=== PATIENT | male | born 1955 ===

== ENCOUNTER 2018-01-15 10:54 | Emergency (ER) | payer OTHER ==
[2018-01-15 10:54] VITALS: BMI 33.8
[2018-01-15 12:01] LABS: BASO # 0.2 K/uL (0.0-0.2); BASO % 2.5 % (0.0-2.0); EOS # 0.2 K/uL (0.0-0.7); EOS % 2.2 % (0.0-4.0); HEMOGLOBIN 16.1 g/dL (12.0-18.0); LYMPH # 1.7 K/uL (1.0-4.3); LYMPH % 18.2 % (20.0-40.0); MEAN CORPUSCULAR HEMOGLOBIN 35.1 pg (27.0-31.0); MEAN CORPUSCULAR HGB CONC 35.4 g/dL (33.0-37.0); MONO # 0.7 K/uL (0.0-0.8); MONO % 7.4 % (0.0-10.0); NEUT # 6.5 K/uL (1.8-7.0); NEUT % 69.7 % (50.0-75.0); RBC 4.58 Mil/uL (4.40-5.90); RED CELL DISTRIBUTION WIDTH 12.2 % (11.5-14.5); WHITE BLOOD COUNT 9.3 K/uL (4.8-10.8)
[2018-01-15] MEDS ORDERED: Sodium Chloride 0.9% 1,000 ML IV ONE (12:04)
[2018-01-15] MEDS ORDERED: Sodium Chloride 0.9% 1,000 ML ONE (12:09)
[2018-01-15 12:13] LABS: ALB/GLOB RATIO 1.1 (1.0-2.1); ALBUMIN 4.4 g/dL (3.5-5.0); ALT/SGPT 91 U/L (21-72); AST/SGOT 64 U/L (17-59); BLOOD UREA NITROGEN 12 mg/dL (9-20); CALCIUM 9.6 mg/dl (8.6-10.4); GFR AFRICAN-AMERICAN > 60; GFR NON-AFRICAN AMERICAN > 60; LIPASE 157 U/L (23-300)
--- NOTE | 2018-01-15 12:22 | C.PDOC ---
History Of Present Illness Patient is a 62 y/o male who presents to the ED with a complaint of RUQ pain for approximately 1 week. Patient denies any nausea, vomiting, diarrhea, dysuria , fever, chest pain, or shortness of breath. Patient has no other physical complaints at this time. Time Seen by Provider: 01/15/18 11:16 Chief Complaint (Nursing): Abdominal Pain History Per: Patient History/Exam Limitations: no limitations Onset/Duration Of Symptoms: Days (1 week) Current Symptoms Are (Timing): Still Present Location Of Pain/Discomfort: RUQ Past Medical History Reviewed: Historical Data, Nursing Documentation, Vital Signs Vital Signs: Last Vital Signs Temp 98.1 F 01/15/18 15:47 Pulse 66 01/15/18 15:47 Resp 20 01/15/18 15:47 BP 149/79 01/15/18 15:47 Pulse Ox 99 01/15/18 15:47 - Medical History PMH: Colonic Polyps, HTN Denies: Chronic Kidney Disease Surgical History: Endoscopy - [facility] Procedures ENDOSC POLYPECTOMY OF LG INTEST (05/14/15) TETANUS TOXOID ADMINIST (02/20/14) Family History: States: Unknown Family Hx - Social History Hx Tobacco Use: No Hx Alcohol Use: No Hx Substance Use: No (Former) - Immunization History Hx Tetanus Toxoid Vaccination: Yes (02/20/14) Hx Influenza Vaccination: No Hx Pneumococcal Vaccination: No Review Of Systems Except As Marked, All Systems Reviewed And Found Negative. Gastrointestinal: Positive for: Abdominal Pain (RUQ pain) Physical Exam - Physical Exam Appears: Well, Non-toxic, No Acute Distress, Other (anxious and bizzare affect; comfortable) Skin: Normal Color, Warm, Diaphoretic Head: Atraumatic, Normacephalic Chest: Symmetrical Cardiovascular: Rhythm Regular, No Murmur Respiratory: Normal Breath Sounds, No Rales, No Rhonchi, No Wheezing Gastrointestinal/Abdominal: Soft, Tenderness (mildly tender to RUQ and epigastric area), No Guarding, No Rebound, Other (negative ashley's sign; negative mcburney's sign) ED Course And Treatment - Laboratory Results Result Diagrams: 01/15/18 11:57 01/15/18 11:57 O2 Sat by Pulse Oximetry: 99 Progress Note: blood work and CT abdomen/pelvis ordered. IV fluids administered. Disposition Counseled Patient/Family Regarding: Studies Performed, Diagnosis, Need For Followup - Disposition Referrals: [facility] at [facility] [Outside] Anatoly Abdi MD [Staff Provider] - Disposition: HOME/ ROUTINE Disposition Time: 16:50 Condition: STABLE Additional Instructions: FOLLOW UP WITH PROCESS CONTROL TECHNICIAN WITHIN 1 WEEK RETURN TO EMERGENCY ROOM IF SYMPTOMS WORSEN SEGUIMIENTO CON GASTROENTERLOGO DENTRO DE 1 SEMANA REGRESE AL MOODY DE EMERGENCIA SI LOS SNTOMAS EMPEORAN Instructions: Acute Abdomen (Belly Pain), Adult (DC) Forms: [employer] (Tanzanian) Print Language: MALTESE - POA Present On Arrival: None - Clinical Impression Clinical Impression: RUQ abdominal pain - Scribe Statement The provider has reviewed the documentation as recorded by the Scribe Gloria Lloyd All medical record entries made by the Scribe were at my direction and personally dictated by me. I have reviewed the chart and agree that the record accurately reflects my personal performance of the history, physical exam, medical decision making, and the department course for this patient. I have also personally directed, reviewed, and agree with the discharge instructions and disposition.
[2018-01-15 12:34] LABS: URINE BILIRUBIN NEGATIVE (NEGATIVE); URINE BLOOD 1+ (NEGATIVE); URINE CLARITY Clear (Clear); URINE COLOR Yellow (YELLOW); URINE GLUCOSE (UA) NORMAL (Normal); URINE LEUKOCYTE ESTERASE NEG Leu/uL (Negative); URINE PROTEIN NEGATIVE (NEGATIVE); URINE UROBILINOGEN NORMAL mg/dL (0.2-1.0)
[2018-01-15] MEDS ORDERED: Iodixanol 320 MG/ML 100 ML BOTTLE IV ONE (15:02)
[2018-01-15 15:48] VITALS: RESP 20
--- NOTE | 2018-01-15 16:54 | CT ---
PROCEDURE: CT Abdomen and Pelvis with contrast HISTORY: UPPER ABDOMINAL PAIN COMPARISON: 05/14/2015 TECHNIQUE: Contrast dose: 100 mL Visipaque 320 Radiation dose: Total exam DLP = 1321.78 mGy-cm. This CT exam was performed using one or more of the following dose reduction techniques: Automated exposure control, adjustment of the mA and/or kV according to patient size, and/or use of iterative reconstruction technique. FINDINGS: LOWER THORAX: Unremarkable. LIVER: Unremarkable. No gross lesion or ductal dilatation. GALLBLADDER AND BILE DUCTS: Unremarkable. PANCREAS: Unremarkable. No gross lesion or ductal dilatation. SPLEEN: Unremarkable. ADRENALS: Unremarkable. No mass. KIDNEYS AND URETERS: Unremarkable. No hydronephrosis. No solid mass. VASCULATURE: Unremarkable. No aortic aneurysm. BOWEL: Unremarkable. No obstruction. No gross mural thickening. APPENDIX: Normal appendix. PERITONEUM: Unremarkable. No free fluid. No free air. LYMPH NODES: Unremarkable. No enlarged lymph nodes. BLADDER: Unremarkable. REPRODUCTIVE: Normal prostate BONES: No acute fracture. OTHER FINDINGS: None. IMPRESSION: Unremarkable contrast enhanced CT of the abdomen and pelvis.
[2018-01-15 17:19] VITALS: BP 135/82; PULSE 67; TEMP 98.7; O2SAT 97
== END 2018-01-15 17:20 | disposition home or self-care (01) ==
LOC: C.ER 10:54
DX: R10.11 Right upper quadrant pain (principal); I10 Essential (primary) hypertension
CPT/HCPCS: 74177; 80053; 81001; 83690; 85025; 96360; 99285; J7040; Q9967

== ENCOUNTER 2018-06-05 17:54 | Emergency (ER) | payer OTHER ==
[2018-06-05 17:55] VITALS: BMI 33.8
[2018-06-05 18:16] VITALS: RESP 18; O2SAT 97
[2018-06-05] MEDS ORDERED: Ciprofloxacin 400mg/200ml D5W 400 MG/200 ML BAG IVPB STA (19:41)
[2018-06-05] MEDS ORDERED: cefTRIAXone IV 1 gm in Dextros 50 ML IVPB ONE (19:41)
[2018-06-05 19:58] LABS: BASO # 0.1 K/uL (0.0-0.2); BASO % 0.9 % (0.0-2.0); EOS # 0.2 K/uL (0.0-0.7); EOS % 2.8 % (0.0-4.0); HEMOGLOBIN 14.8 g/dL (12.0-18.0); LYMPH # 2.4 K/uL (1.0-4.3); MEAN CELL VOLUME 98.1 fL (80.0-94.0); MEAN CORPUSCULAR HEMOGLOBIN 34.9 pg (27.0-31.0); MEAN CORPUSCULAR HGB CONC 35.6 g/dL (33.0-37.0); MEAN PLATELET VOLUME 7.7 fL (7.2-11.7); MONO # 0.6 K/uL (0.0-0.8); MONO % 9.6 % (0.0-10.0); NEUT # 2.9 K/uL (1.8-7.0); NEUT % 47.7 % (50.0-75.0); RBC 4.24 Mil/uL (4.40-5.90); RED CELL DISTRIBUTION WIDTH 12.4 % (11.5-14.5); WHITE BLOOD COUNT 6.1 K/uL (4.8-10.8)
[2018-06-05] MEDS ORDERED: Cefotaxime 1 GM in Sodium Chloride 0.9% 100 ML IV ONE (20:00)
[2018-06-05 20:05] LABS: SQUAMOUS EPITHIAL < 1 /hpf (0-5); URINE AMORPHOUS SEDIMENT RARE /ul (<OCC); URINE BACTERIA RARE (<OCC); URINE BILIRUBIN NEGATIVE (NEGATIVE); URINE BLOOD NEGATIVE (NEGATIVE); URINE CLARITY Hazy (Clear); URINE COLOR Yellow (YELLOW); URINE GLUCOSE (UA) NORMAL (Normal); URINE LEUKOCYTE ESTERASE NEG Leu/uL (Negative); URINE PROTEIN NEGATIVE (NEGATIVE)
--- NOTE | 2018-06-05 20:07 | C.PDOC ---
History Of Present Illness 62 year old male patient with history of gastritis and BPH presents to the ER with c/o prostate discomfort/pain x5 days ago. The discomfort feels like a sharp, stabbing pain. Patient reports he had prostatitis 2 years ago without it recurring until x5 days ago. Patient takes flomax for his prostatitis. Associated symptoms includes sticking pain in his prostate and discomfort when he moves or changes position. Patient denies fever, chills, nausea, vomiting, abdominal pain, diarrhea and dysuria. Time Seen by Provider: 06/05/18 19:10 Chief Complaint (Nursing): Male Genitourinary History Per: Patient History/Exam Limitations: no limitations Onset/Duration Of Symptoms: Days (x6) Current Symptoms Are (Timing): Still Present Quality Of Discomfort: Sharp, Stabbing Past Medical History Reviewed: Historical Data, Nursing Documentation, Vital Signs Vital Signs: Last Vital Signs Temp 98.7 F 06/05/18 18:12 Pulse 74 06/05/18 18:12 Resp 18 06/05/18 18:12 BP 147/77 06/05/18 18:12 Pulse Ox 97 06/05/18 18:12 - Medical History PMH: Colonic Polyps, HTN Surgical History: Endoscopy - [facility] Procedures ENDOSC POLYPECTOMY OF LG INTEST (05/14/15) TETANUS TOXOID ADMINIST (02/20/14) Family History: States: Unknown Family Hx - Social History Hx Tobacco Use: No Hx Alcohol Use: No Hx Substance Use: No (Former) - Immunization History Hx Tetanus Toxoid Vaccination: Yes (02/20/14) Hx Influenza Vaccination: No Hx Pneumococcal Vaccination: No Review Of Systems Except As Marked, All Systems Reviewed And Found Negative. Constitutional: Negative for: Fever, Chills Gastrointestinal: Negative for: Nausea, Vomiting, Abdominal Pain, Diarrhea Genitourinary: Positive for: Other (prostate discomfort and pain ). Negative for: Dysuria Physical Exam - Physical Exam Appears: Non-toxic, No Acute Distress Skin: Normal Color, Warm, Dry Head: Normacephalic Eye(s): bilateral: Normal Inspection, EOMI Gastrointestinal/Abdominal: Soft, Other (discomfort in suprapubic area) Male Genital: No Testicular Tenderness Neurological/Psych: Oriented x3, Normal Speech Gait: Steady ED Course And Treatment - Laboratory Results Result Diagrams: 10/06/18 19:50 O2 Sat by Pulse Oximetry: 97 (RA) Pulse Ox Interpretation: Normal Medical Decision Making Medical Decision Making: Impression: prostate discomfort/pain Plans: -- chem lab -- blood work -- cipro -- claforan -- IV fluids -- Rocephin -- UA Disposition Counseled Patient/Family Regarding: Studies Performed, Need For Followup, Rx Given - Disposition Referrals: [facility] at [facility] [Outside] Disposition: HOME/ ROUTINE Disposition Time: 21:04 Condition: IMPROVED Prescriptions: Doxycycline Hyclate 100 mg PO BID #14 capsule Ibuprofen [Motrin] 600 mg PO TID #15 tab Instructions: Prostatitis Forms: [employer] (Tamazight) - POA Present On Arrival: None - Clinical Impression Clinical Impression: Prostatitis - Scribe Statement The provider has reviewed the documentation as recorded by the Scribafrica Nieto Do Provider Attestation: All medical record entries made by the Scribe were at my direction and pe rsonally dictated by me. I have reviewed the chart and agree that the record accurately reflects my personal performance of the history, physical exam, medical decision making, and the department course for this patient. I have also personally directed, reviewed, and agree with the discharge instructions and disposition.
[2018-06-05 22:17] VITALS: BP 135/78; PULSE 71; TEMP 98.4
== END 2018-06-05 22:00 | disposition home or self-care (01) ==
LOC: C.ER 17:54
DX: N41.9 Inflammatory disease of prostate, unspecified (principal)
CPT/HCPCS: 81001; 84153; 85025; 96365; 96375; 99284; J0696; J0744

== ENCOUNTER 2018-10-19 13:30 | Emergency (ER) | payer OTHER ==
[2018-10-19 13:30] VITALS: BMI 33.8
[2018-10-19 13:52] VITALS: TEMP 98.7
[2018-10-19] MEDS ORDERED: Lidocaine 5% Patch TD STA (14:51)
--- NOTE | 2018-10-19 14:51 | C.PDOC ---
History Of Present Illness 62 y/o male c/o lower back pain x 6 weeks, took motrin in first week and nothing since then. has not followed up with pmd, denies numbness, weakness and tingling in lower extremities. no fever or chills. pt requesting xray of back. no bladder or bowel dysfunction, no abdominal pain, no urinary symptoms. Time Seen by Provider: 10/19/18 14:33 Chief Complaint (Nursing): Back Pain History Per: Patient History/Exam Limitations: no limitations, language barrier Onset/Duration Of Symptoms: Days (6 weeks) Current Symptoms Are (Timing): Still Present Quality Of Discomfort: Unable To Describe, "Pain" Severity: Moderate Associated Symptoms: denies: Incontinence, New Weakness, New Numbness Exacerbating Factor(s): Movement Past Medical History Reviewed: Historical Data, Nursing Documentation, Vital Signs Vital Signs: Last Vital Signs Temp 98.7 F 10/19/18 13:50 Pulse 83 10/19/18 13:50 Resp 18 10/19/18 13:50 BP 130/74 10/19/18 13:50 Pulse Ox 96 10/19/18 13:50 - Medical History PMH: Colonic Polyps, HTN Denies: Chronic Kidney Disease Other PMH: bph Surgical History: Endoscopy - [facility] Procedures ENDOSC POLYPECTOMY OF LG INTEST (05/14/15) TETANUS TOXOID ADMINIST (02/20/14) Family History: States: Unknown Family Hx - Social History Hx Tobacco Use: No Hx Alcohol Use: No Hx Substance Use: No (Former) - Immunization History Hx Tetanus Toxoid Vaccination: Yes (02/20/14) Hx Influenza Vaccination: No Hx Pneumococcal Vaccination: No Review Of Systems Constitutional: Negative for: Fever, Chills Cardiovascular: Negative for: Chest Pain Respiratory: Negative for: Cough Gastrointestinal: Negative for: Nausea, Vomiting, Abdominal Pain Genitourinary: Negative for: Dysuria Physical Exam - Physical Exam Appears: Non-toxic, No Acute Distress Skin: Normal Color, Warm, Dry Head: Atraumatic, Normacephalic Neck: Supple Chest: Symmetrical, No Deformity Back: Other (diffuse mild lower lumbar tenderness ) Extremity: Normal ROM, Capillary Refill (less than 2 seconds ) Neurological/Psych: Oriented x3, Normal Speech, Normal Cognition, Normal Motor, Normal Sensation ED Course And Treatment O2 Sat by Pulse Oximetry: 96 - Other Rad lumbar spine XR X-Ray: Viewed By Me, Read By Radiologist Interpretation: Date of service: 10/19/2018. PROCEDURE: Radiographs of the Lumbar Spine. HISTORY: low back pain. COMPARISON: No prior. FINDINGS: BONES: There is 5 mm degenerative retrolisthesis of L4 on L5 and 6 mm degenerative retrolisthesis of L3 on L4. There is normal lumbar lordosis. There is no acute fracture. DISC SPACES: There is multilevel degenerative disc disease with anterior osteophytes, reduced disc heights and multilevel facet arthropathy, worse at L4-5. OTHER FINDINGS: There are no pathologic soft tissue calcifications. Both sacroiliac joints are normal. IMPRESSION: No acute fracture. Multilevel degenerative disc disease, worse at L4-5. Medical Decision Making Medical Decision Making: Progress: CXR and LS Spine XR ordered and reviewed. Tylenol PO and Lidocaine patch administered. 1700 discussed with patient that xray neg for fx. +arthirist, referred to pmd for pt and pain mgmt if needed. Disposition Counseled Patient/Family Regarding: Studies Performed, Diagnosis, Need For Followup, Rx Given - Disposition Referrals: [facility] at [facility] [Outside] Disposition: HOME/ ROUTINE Disposition Time: 17:03 Condition: GOOD Additional Instructions: [place] Tylenol o Motrin para el dolor. Seguimiento en clnica mdica; llame para jeanette tabby. Recomiende la terapia fsica para el dolor de espalda y la derivacin al tratamiento del dolor si es necesario. Take Tylenol or Motrin for pain. Follow up in medical clinic; call for an appointment. Recommend physical therapy for back pain and referral to pain management if needed. Prescriptions: Acetaminophen [Tylenol 325mg tab] 650 mg PO Q6 #30 tab Forms: Gen Discharge Inst Yi, [employer] (Yi) Print Language: SLOVENIAN - Clinical Impression Clinical Impression: Low back pain - PA / TYPEWRITER OPERATOR AUTOMATIC / Resident Statement MD/DO has reviewed & agrees with the documentation as recorded. - Scribe Statement The provider has reviewed the documentation as recorded by the Scribe (Liz Carroll) All medical record entries made by the Scribe were at my direction and personally dictated by me. I have reviewed the chart and agree that the record accurately reflects my personal performance of the history, physical exam, medical decision making, and the department course for this patient. I have also personally directed, reviewed, and agree with the discharge instructions and disposition.
[2018-10-19] MEDS ORDERED: Lidocaine 5% Patch TD ONE (14:58)
[2018-10-19 16:30] LABS: URINE BILIRUBIN NEGATIVE (NEGATIVE); URINE BLOOD 1+ (NEGATIVE); URINE CLARITY Clear (Clear); URINE COLOR Yellow (YELLOW); URINE GLUCOSE (UA) NORMAL (Normal); URINE LEUKOCYTE ESTERASE NEG Leu/uL (Negative); URINE PROTEIN NEGATIVE (NEGATIVE)
--- NOTE | 2018-10-19 16:38 | RAD ---
Date of service: 10/19/2018 PROCEDURE: Radiographs of the Lumbar Spine. HISTORY: low back pain COMPARISON: No prior. FINDINGS: BONES: There is 5 mm degenerative retrolisthesis of L4 on L5 and 6 mm degenerative retrolisthesis of L3 on L4. There is normal lumbar lordosis. There is no acute fracture. DISC SPACES: There is multilevel degenerative disc disease with anterior osteophytes, reduced disc heights and multilevel facet arthropathy, worse at L4-5. OTHER FINDINGS: There are no pathologic soft tissue calcifications. Both sacroiliac joints are normal. IMPRESSION: No acute fracture. Multilevel degenerative disc disease, worse at L4-5.
[2018-10-19 17:11] VITALS: BP 126/79; PULSE 72; RESP 16; O2SAT 98
== END 2018-10-19 17:10 | disposition home or self-care (01) ==
LOC: C.ER 13:30
DX: M54.5 Low back pain (principal); I10 Essential (primary) hypertension

== ENCOUNTER 2019-01-26 16:27 | Emergency (ER) | payer OTHER ==
[2019-01-26 16:27] VITALS: BMI 33.8
[2019-01-26 16:39] VITALS: BP 128/81; PULSE 85; RESP 18; TEMP 98.4; O2SAT 96
--- NOTE | 2019-01-26 17:46 | C.PDOC ---
History Of Present Illness 63 year old male with a history of benign prostatic hyperplasia presents to the emergency department stating "I think I have an infection in my urine". Patient reports a sharp suprapubic pain with frequency and dribbling for the last 5 days. Patient reports having similar symptoms one year ago, which resolved. Patient reports taking Flomax which has helped his symptoms. Patient is s/p colonoscopy and pending results on 02/04/19.. Chief Complaint (Nursing): Male Genitourinary History Per: Patient History/Exam Limitations: no limitations Onset/Duration Of Symptoms: Days (5) Current Symptoms Are (Timing): Still Present Quality Of Discomfort: "Pain" Associated Symptoms: Urinary Symptoms. denies: Fever, Chills, Nausea, Vomiting, Diarrhea, Loss Of Appetite, Back Pain, Chest Pain Past Medical History Reviewed: Historical Data, Nursing Documentation, Vital Signs Vital Signs: Last Vital Signs Temp 98.4 F 01/26/19 16:34 Pulse 85 01/26/19 16:34 Resp 18 01/26/19 16:34 BP 128/81 01/26/19 16:34 Pulse Ox 96 01/26/19 16:34 Primary Care Provider: FAMILY PROVIDER,NO - Medical History PMH: Benign Prostatic Hyperplasia, Colonic Polyps, HTN Denies: Chronic Kidney Disease Surgical History: Endoscopy - [facility] Procedures ENDOSC POLYPECTOMY OF LG INTEST (05/14/15) TETANUS TOXOID ADMINIST (02/20/14) Family History: States: No Known Family Hx - Social History Hx Tobacco Use: No Hx Alcohol Use: No Hx Substance Use: No (Former) - Immunization History Hx Tetanus Toxoid Vaccination: Yes (02/20/14) Hx Influenza Vaccination: No Hx Pneumococcal Vaccination: No Review Of Systems Constitutional: Negative for: Fever, Chills, Weakness Cardiovascular: Negative for: Chest Pain Respiratory: Negative for: Shortness of Breath Gastrointestinal: Positive for: Abdominal Pain (suprapubic) Genitourinary: Positive for: Frequency, Other (dribbling) Musculoskeletal: Negative for: Neck Pain Skin: Negative for: Rash, Bruising Neurological: Negative for: Numbness, Headache Physical Exam - Physical Exam Appears: Non-toxic, No Acute Distress Skin: Normal Color, Warm, Dry Head: Atraumatic, Normacephalic Eye(s): bilateral: Normal Inspection Oral Mucosa: Moist Neck: Normal ROM, Supple Chest: Symmetrical, No Tenderness Cardiovascular: Rhythm Regular, No Murmur Respiratory: Normal Breath Sounds, No Wheezing Gastrointestinal/Abdominal: Soft, No Tenderness, No Guarding, No Rebound Back: No CVA Tenderness Extremity: Normal ROM, Capillary Refill <2 Sec Extremity: Bilateral: Atraumatic Neurological/Psych: Oriented x3, Normal Speech, Normal Cognition, Normal Motor, Normal Sensation ED Course And Treatment O2 Sat by Pulse Oximetry: 96 (RA) Pulse Ox Interpretation: Normal Medical Decision Making Medical Decision Making: Plan: UA ordered and negative patient advised to follow up with PMD or Urologist to check PSA and manage BPH Continue Flomax Patient verbalized understanding and is stable for discharge Disposition Counseled Patient/Family Regarding: Studies Performed, Diagnosis, Need For Followup, Rx Given - Disposition Referrals: Stevan Hernandez MD [Staff Provider] - Pricila Simon MD [Medical Doctor] - Disposition: HOME/ ROUTINE Disposition Time: 18:39 Condition: STABLE Additional Instructions: Continue Flomax Follow up with Urology Return to the ED if symptoms worsen Prescriptions: Tamsulosin [Flomax] 0.4 mg PO DAILY #30 cap Instructions: Benign Prostatic Hyperplasia (Enlarged Prostate) (DC) Forms: [employer] ([place]riac) Print Language: OCCITAN - Clinical Impression Clinical Impression: Difficulty in urination, BPH (benign prostatic hyperplasia) - PA / PROPOSAL EDITOR / Resident Statement MD/DO has reviewed & agrees with the documentation as recorded. - Scribe Statement The provider has reviewed the documentation as recorded by the Scribe (Jimmy Damico) All medical record entries made by the Scribe were at my direction and personally dictated by me. I have reviewed the chart and agree that the record accurately reflects my personal performance of the history, physical exam, medical decision making, and the department course for this patient. I have also personally directed, reviewed, and agree with the discharge instructions and disposition.
[2019-01-26 18:08] LABS: SQUAMOUS EPITHIAL < 1 /hpf (0-5); URINE BILIRUBIN NEGATIVE (NEGATIVE); URINE BLOOD 1+ (NEGATIVE); URINE CLARITY Hazy (Clear); URINE COLOR Yellow (YELLOW); URINE GLUCOSE (UA) NORMAL (Normal); URINE LEUKOCYTE ESTERASE NEG Leu/uL (Negative); URINE PROTEIN NEGATIVE (NEGATIVE)
[2019-01-26] MEDS ORDERED: Lidocaine 5% Patch TD STA (18:46)
== END 2019-01-26 19:06 | disposition home or self-care (01) ==
LOC: C.ER 16:27
DX: N40.1 Benign prostatic hyperplasia with lower urinary tract symptoms (principal); R39.198 Other difficulties with micturition